=== PATIENT | male | born 1970 | race Caucasian/White ===

== ENCOUNTER 2018-03-03 01:10 | Emergency (ER) | payer SELFPAY ==
[~2018-03-03] VITALS: Ht 172.7 cm; Wt 97.5 kg
[2018-03-03 01:24] VITALS: Ht 172.7 cm; Wt 97.5 kg
[2018-03-03 02:16] LABS: BASOPHIL % 1.4 % (0-2)
[2018-03-03 02:18] LABS: CHLORIDE SERUM 103 mmol/L (98-107); PLATELET COUNT 405 x10^3mcL (130-400); POTASSIUM SERUM 3.8 mmol/L (3.5-5.1); RED CELL DISTRIBUTION WIDTH 19.6 % (11.5-14.5); SODIUM SERUM 139 mmol/L (136-145)
[2018-03-03 02:19] LABS: CALCIUM 8.1 mg/dL (8.5-10.1); CARBON DIOXIDE 25.1 mmol/L (21-32); GFR1 > 60 mL/min; GLUCOSE SERUM 130 mg/dL (74-106)
[2018-03-03 02:26] LABS: ALBUMIN 3.9 g/dL (3.4-5.0); ALKALINE PHOSPHATASE 93 U/L (46-116); ALT/SGPT 28 U/L (16-63); AST/SGOT 18 U/L (15-37); BILIRUBIN TOTAL 0.17 mg/dL (0.20-1.00); TOTAL PROTEIN, SERUM 8.1 g/dL (6.4-8.2)
[2018-03-03 04:39] VITALS: BP 115/70
== END 2018-03-03 04:41 | disposition home or self-care (01) ==
LOC: ED 01:10
PROVIDERS: Emergency Medicine
DX: T24.201A Burn of second degree of unspecified site of right lower limb, except ankle and foot, initial encounter (principal); T23.052A Burn of unspecified degree of left palm, initial encounter; T23.051A Burn of unspecified degree of right palm, initial encounter; T31.0 Burns involving less than 10% of body surface
CPT/HCPCS: 90714; J2270; J2405; J7030

== ENCOUNTER 2018-07-17 19:20 | Inpatient (IN) | payer MEDICAID ==
[~2018-07-17] VITALS: Ht 175.3 cm; Wt 92.7 kg
[2018-07-17 19:29] VITALS: Ht 175.3 cm; Wt 92.7 kg
[2018-07-17 20:30] LABS: microscopic required? NO
[2018-07-17 20:36] LABS: UA SPECIFIC GRAVITY <=1.005 (1.005-1.035); urine erythrocyte NEGATIVE (NEGATIVE)
[2018-07-17 20:40] LABS: PLATELET COUNT 344 x10^3mcL (130-400)
[2018-07-17 20:47] LABS: BASOPHIL % 0 % (0-2); RED CELL DISTRIBUTION WIDTH 20.9 % (11.5-14.5)
[2018-07-17 21:08] LABS: CALCIUM 8.9 mg/dL (8.5-10.1); CARBON DIOXIDE 27.1 mmol/L (21-32); CHLORIDE SERUM 100 mmol/L (98-107); CREATININE SERUM 0.9 mg/dL (0.7-1.3); GFR1 > 60 mL/min; GLUCOSE SERUM 110 mg/dL (74-106); POTASSIUM SERUM 3.8 mmol/L (3.5-5.1); SODIUM SERUM 135 mmol/L (136-145)
[2018-07-17 21:11] LABS: rbc morphology (normal/abnorm) ABNORMAL (NORMAL)
[2018-07-17 21:12] LABS: ALBUMIN 3.4 g/dL (3.4-5.0); ALKALINE PHOSPHATASE 90 U/L (46-116); ALT/SGPT 24 U/L (16-63); AST/SGOT 13 U/L (15-37); BILIRUBIN TOTAL 0.2 mg/dL (0.20-1.00); LIPASE 83 IU/L (73-393); TOTAL PROTEIN, SERUM 7.3 g/dL (6.4-8.2)
[2018-07-17 23:02] LABS: MAGNESIUM 1.7 mg/dL (1.8-2.4); PHOSPHOROUS 3.3 mg/dL (2.5-4.9)
[2018-07-17 23:10] LABS: CHOLESTEROL/HDL RATIO 5.7
[2018-07-17 23:22] VITALS: BP 155/73
[2018-07-18 06:36] LABS: CALCIUM 8.9 mg/dL (8.5-10.1); CARBON DIOXIDE 24.9 mmol/L (21-32); CHLORIDE SERUM 101 mmol/L (98-107); CREATININE SERUM 0.7 mg/dL (0.7-1.3); GFR1 > 60 mL/min; GLUCOSE SERUM 102 mg/dL (74-106); POTASSIUM SERUM 3.6 mmol/L (3.5-5.1); SODIUM SERUM 138 mmol/L (136-145)
[2018-07-18 07:54] VITALS: BP 137/91
[2018-07-18 08:51] LABS: BASOPHIL % 0.1 % (0-2); PLATELET COUNT 347 x10^3mcL (130-400)
[2018-07-18 08:53] LABS: RED CELL DISTRIBUTION WIDTH 21.5 % (11.5-14.5)
[2018-07-18 09:39] LABS: ovalocyte/elliptocyte 1+; tear drop cell (dacryocyte) 1+
[2018-07-18 09:40] LABS: rbc morphology (normal/abnorm) ABNORMAL (NORMAL)
[2018-07-18 10:07] LABS: TOTAL IRON BINDING CAPACITY 436 ug/dL (250-450)
[2018-07-18 10:19] LABS: IRON 12 ug/dL (65-170)
[2018-07-18 12:08] VITALS: BP 137/90
[2018-07-18 16:08] VITALS: BP 147/92
[2018-07-18 20:52] VITALS: BP 121/59
[2018-07-19 05:12] VITALS: BP 129/76
[2018-07-19 06:56] LABS: CALCIUM 9.3 mg/dL (8.5-10.1); CARBON DIOXIDE 27.9 mmol/L (21-32); CHLORIDE SERUM 102 mmol/L (98-107); CREATININE SERUM 0.9 mg/dL (0.7-1.3); GFR1 > 60 mL/min; GLUCOSE SERUM 109 mg/dL (74-106); MAGNESIUM 2.3 mg/dL (1.8-2.4); PHOSPHOROUS 3.7 mg/dL (2.5-4.9); POTASSIUM SERUM 4.2 mmol/L (3.5-5.1); SODIUM SERUM 138 mmol/L (136-145)
[2018-07-19 08:31] LABS: PLATELET COUNT 379 x10^3mcL (130-400); RED CELL DISTRIBUTION WIDTH 21.3 % (11.5-14.5)
[2018-07-19 08:32] LABS: BASOPHIL % 0.2 % (0-2)
[2018-07-19 10:35] VITALS: BP 143/91
[2018-07-19 14:06] VITALS: BP 135/88
[2018-07-19 15:16] VITALS: BP 121/79
[2018-07-19 19:45] VITALS: BP 114/66
[2018-07-20 05:35] VITALS: BP 110/72
[2018-07-20 08:00] LABS: CARBON DIOXIDE 30.4 mmol/L (21-32); CHLORIDE SERUM 100 mmol/L (98-107); CREATININE SERUM 0.9 mg/dL (0.7-1.3); GFR1 > 60 mL/min; GLUCOSE SERUM 106 mg/dL (74-106); POTASSIUM SERUM 4.3 mmol/L (3.5-5.1); SODIUM SERUM 137 mmol/L (136-145)
[2018-07-20 08:31] LABS: BASOPHIL % 0.1 % (0-2); PLATELET COUNT 359 x10^3mcL (130-400); RED CELL DISTRIBUTION WIDTH 21.7 % (11.5-14.5)
[2018-07-20 09:07] VITALS: BP 119/71
[2018-07-20] MEDS ORDERED: BIA500 PO (09:48)
[2018-07-20] MEDS ORDERED: AMO500 PO (09:49)
[2018-07-20] MEDS ORDERED: IND10 PO (09:54)
[2018-07-20] MEDS ORDERED: FER300 PO (09:55)
[2018-07-20] MEDS ORDERED: ANUHCS PR (09:57)
[2018-07-20] MEDS ORDERED: METAMUCIL660 GM PO (10:00)
[2018-07-20 10:57] VITALS: BP 119/71
== END 2018-07-20 11:31 | disposition home or self-care (01) | DRG 241 ==
LOC: ED 19:20 → DU 21:43 → MU 07-19 13:38
PROVIDERS: Emergency Medicine; Internal Medicine Gastroenterology; ADMIT Family Medicine
PROC: 0DB78ZX Excision of Stomach, Pylorus, Via Natural or Artificial Opening Endoscopic, Diagnostic (ICD-10-PCS; principal; 2018-07-18 09:00)
PROC: 0DJD8ZZ Inspection of Lower Intestinal Tract, Via Natural or Artificial Opening Endoscopic (ICD-10-PCS; 2018-07-19)
DX: K29.01 Acute gastritis with bleeding (principal); A04.8 Other specified bacterial intestinal infections; K76.6 Portal hypertension; D62 Acute posthemorrhagic anemia; E83.42 Hypomagnesemia; E87.1 Hypo-osmolality and hyponatremia; K64.8 Other hemorrhoids; K31.89 Other diseases of stomach and duodenum; M51.26 Other intervertebral disc displacement, lumbar region; G89.29 Other chronic pain; E78.5 Hyperlipidemia, unspecified; Z68.35 Body mass index [BMI] 35.0-35.9, adult; Z79.1 Long term (current) use of non-steroidal anti-inflammatories (NSAID)
CPT/HCPCS: 43235; 45378; J1200; J1364; J1610; J2250; J2270; J2310; J2765; J3010; J3490; Q0092; Q9966; Q9967